=== PATIENT | female | born 1950 | race Asian ===

== ENCOUNTER 2025-02-02 08:00 | Day surgery (SDC) | payer MEDICARE, BC, SELFPAY ==
[2025-01-30 13:45] VITALS: BMI 24.0
[2025-02-02] VITALS (10 sets, daily range): BP systolic 111–154; BP diastolic 68–95; PULSE 58–68; RESP 11–20; TEMP 36.3–37.2; O2SAT 93–99; BMI 23.6
[2025-02-02] MEDS: SODIUM CHLORIDE 0.9% 500 ML 500 ML 20 ML IV (09:35)
[2025-02-02] MEDS: fentaNYL CIT INJ 50 mCg/ML AMP 2ML (ASD USE ONLY) IVP (09:38)
[2025-02-02] MEDS: MIDAZOLAM INJ 1 MG/ML VIAL 2 ML (ASD USE ONLY) 2 MG IVP (09:38)
--- NOTE | 2025-02-02 09:58 | SUR.PHASEII ---
0950 patient is sleepy and arousable, breathing unlabored, s/p colonoscopy under IV sedation, report received from Meeta BUSTILLOS.
--- NOTE | 2025-02-02 10:31 | SUR.PHASEII ---
patient waiting for ride
--- NOTE | 2025-02-02 10:56 | SUR.PHASEII ---
1052 patient is awake, alert, breathing unlabored, able to tolerate sips of water with no nausea or vomiting, meets discharge criteria, discharge instrucitons given to patient and Jesse, patient discharged home in wheelchair with all belongings.
== END 2025-02-02 10:52 | disposition home or self-care (01) ==
PROVIDERS: PCP Internal Medicine; Referring Provider Specialist; Visit Provider Specialist
PROC: 0DBE8ZX Excision of Large Intestine, Via Natural or Artificial Opening Endoscopic, Diagnostic (ICD-10-PCS; CPT 45380; principal; 2025-02-02 09:00)
DX: Z12.11 Encounter for screening for malignant neoplasm of colon (principal); D12.0 Benign neoplasm of cecum
CPT/HCPCS: G0121; A4649; J1200; J2250; J3010; J7999